=== PATIENT | female | born 1975 | race Hispanic/Latino ===

== ENCOUNTER 2017-02-12 13:41 | Emergency (ER) | payer SELFPAY ==
[~2017-02-12] VITALS: Ht 157.5 cm; Wt 89.5 kg
[~2017-02-12 13:41] MED LIST: LAMI250T PO
[2017-02-12 13:52] VITALS: BP 105/72; PULSE 86; RESP 16; O2SAT 98
[2017-02-12] MEDS ORDERED: 0.9% Sodium Chloride 1,000 ML IV ONE (14:32)
[2017-02-12] MEDS ORDERED: HYDROmorphone 0.5 mg/0.5 mL iSecure Syringe IVPUSH PRN (14:35)
[2017-02-12] MEDS ORDERED: Ondansetron 2 mg/mL 2 mL Inj IVPUSH ONE (14:35)
--- NOTE | 2017-02-12 14:41 | ED.REPORT ---
HPI-Abd Pain F 40 and Over Date of Service Feb 12, 2017 ED Provider: Zack Montano PA-C Mili is a 42-year-old woman who presents with a chief complaint of abdominal pain. She states that the pain began about 5 hours ago in her lower abdomen. She noted the pain to travel to her upper abdomen first to one side, then the other. At presentation her pain is again centered in her lower abdomen. She has not eaten since last night. Denies vomiting, diarrhea, bloody/tarry stools , urinary symptoms, vaginal bleeding/discharge, fever, chills, malaise. She reports a history of a hysterectomy. Denies appendectomy, cholecystectomy. Nursing Notes Stated Complaint: ABDOMINAL PAIN Chief Complaint: Female Abdominal Pain Nursing Notes Reviewed: Yes Allergies: Coded Allergies: No Known Allergies (Verified , 02/12/17) Scheduled Doxycycline Hyclate (Doxycycline Hyclate) 100 Mg Tablet 100 MG PO BID Scheduled PRN oxyCODONE-Acetaminophen 5-325 mg (oxyCODONE-Acetaminophen 5-325 mg) 1 Each Tablet 1-2 TAB PO Q4H PRN PRN Severe Pain General Time Seen by MD: 14:24 Chief Complaint Abdominal pain Sudden in Onset?: Yes Past Medical History Past Medical History Denies: Coronary artery disease, Diabetes mellitus, Hypertension, Stroke, Transient ischemic attack Review of Systems Negative unless stated otherwise in history of present illness Physical Exam Vital Signs Vital Signs (First) Date Time Temp Pulse Resp B/P Pulse Ox O2 Delivery O2 Flow Rate FiO2 02/12/17 13:52 36.1 86 16 105/72 98 Room Air Initial VS: Vital signs normal Interpretation & Diagnostics Lab Results Interpretation Result Diagram: 02/12/17 1440 02/12/17 1440 Test 02/12/17 14:40 02/12/17 20:20 02/12/17 21:22 White Blood Count 15.9th/mm3 (3.8-10.1) Red Blood Count 4.45mil/mm3 (3.90-5.20) Hemoglobin 11.9g/dL (12.0-15.6) Hematocrit 37.6% (35.0-46.0) Mean Corpuscular Volume 84.5fL (81-100) Mean Corpuscular Hemoglobin 26.7pg (27.0-35.0) Mean Corpuscular Hemoglobin Concent 31.6% (32.0-37.0) Red Cell Distribution Width 14.1% (12.3-15.4) Platelet Count 274bil/L (150-400) Neutrophils (%) (Auto) 80.0% (40-74) Lymphocytes (%) (Auto) 13.3% (14-46) Monocytes (%) (Auto) 5.9% (4-12) Eosinophils (%) (Auto) 0.5% (0-5) Basophils (%) (Auto) 0.1% (0-3) Urine Color Yellow (YELLOW) Urine Appearance Clear (CLEAR,HAZY) Urine pH 5.5 (5.0-8.0) Urine Specific Marvell 1.010 (1.003-1.035) Urine Protein Negativemg/dL (NEG,TRACE) Urine Glucose (UA) Negativemg/dL (NEGATIVE) Urine Ketones Negativemg/dL (NEGATIVE) Urine Occult Blood Negative (NEGATIVE) Urine Nitrite Negative (NEGATIVE) Urine Bilirubin Negative (NEGATIVE) Urine Urobilinogen Normalmg/dL (NORMAL) Urine Leukocyte Esterase Negative (NEGATIVE) Urine RBC 0-2/hpf (0-2) Urine WBC 0-5/hpf (0-5) Urine Epithelial Cells Many/hpf (NONE-MOD) Urine Crystals None seen (NONE SEEN) Urine Bacteria Moderate/hpf (NONE-FEW) Urine Hyaline Casts None/lpf (NONE) Urine Granular Casts None seen (NONE SEEN) Urine Waxy Casts None seen (NONE SEEN) Urine Red Blood Cell Casts None seen (NONE SEEN) Urine White Blood Cell Casts None seen (NONE SEEN) Urine Mucus None seen (None Seen) Urine Trichomonas None seen (NONE SEEN) Urine Yeast None (NONE SEEN) Urinalysis Comment None Urine Culture Reflexed Indicated Sodium Level 139mEq/L (134-144) Potassium Level 3.7mEq/L (3.5-5.2) Chloride Level 102mEq/L (97-108) Carbon Dioxide Level 22mmol/L (18-29) Blood Urea Nitrogen 9mg/dL (6-24) Creatinine 0.51mg/dL (0.57-1.00) Estimat Glomerular Filtration Rate 188mL/min (>59) Glucose Level 99mg/dL (60-99) Calcium Level 9.5mg/dL (8.5-10.1) Total Bilirubin 0.3mg/dL (0.0-1.2) Aspartate Amino Transf (AST/SGOT) 13U/L (0-50) Alanine Aminotransferase (ALT/SGPT) 15U/L (0-32) Alkaline Phosphatase 57U/L (25-150) Lactate Dehydrogenase 209U/L (100-190) Total Protein 8.0g/dL (6.4-8.4) Albumin 4.2g/dL (3.4-5.0) Lipase 24U/L (13-60) HCG Beta Subunit < 0.500mIU/mL Hold Veloz Top Tube Received (Received) Hold Urine Received (Received) CT Abd / Pelvis Interpretation PROCEDURE: CT ABDOMEN AND PELVIS WITH CONTRAST (PNL-7102) INDICATIONS: lower abdominal pain IMPRESSION: 1. Multiple bilateral low density and intermediate density ovarian cyst with associated lower quadrant fluid. Although these may represent endometriomas or hemorrhagic cysts, ovarian torsion cannot be excluded, and pelvic ultrasound to evaluate for adequate ovarian flow is recommended. Additionally, pelvic ultrasound will better characterize the cystic lesions. 2. Normal appendix. These findings were discussed with Zack Montano at 4:09 PM on 01/1517. 3. Probable right femoral neck bone island. However, no prior comparisons are available. Consider 3 month plain film followup to ensure stability of this finding. Interpretation / Wet Read by: Interpret - Radiologist US Focused non-OB Pelvis PROCEDURE: US PELVIC SONOGRAM WITH TRANSVAG AND DOPPLER INDICATIONS: bilateral ovarian cysts seen on CT IMPRESSION: 1. Complex right ovarian cyst. Differential considerations include hemorrhagic cyst and endometrioma. 6-12 week sonographic followup recommended. 2. Simple left ovarian cysts, one of which measures 6.3 cm in diameter. 6-12 week sonographic followup recommended. 3. No flow visualized within the left ovary. This is likely secondary to the technical limitations and body habitus of the patient. Of note, there appears to be enhancement of the left ovarian parenchyma on the associated CT from earlier today making ovarian torsion less likely. However, ovarian torsion cannot be excluded. Gynecologic followup recommended. These findings were discussed with Zack Montano PA-C at 5:43 PM on 02/12/17. Exam Performed by: Radiologist Re-Eval/Medical Decision Med Decision/Clinical Course 42-year-old female who presents with chief complaint of lower abdominal pain. First noticed several hours prior to presentation. She states she has had this pain 2 times before but it has resolved. Physical examination reveals tenderness to light touch globally but most acutely and lower abdominal quadrants. Vital signs are normal Patient treated with normal saline, ondansetron, hydromorphone. Labs are drawn and revealed moderate leukocytosis at 15.9. Urinalysis is unconvincing for urinary tract infection, cultures are sent. CT scan reveals bilateral ovarian cysts and free fluid. Radiologist advises pelvic ultrasound to further characterize lesions. Ultrasound confirmed perfusion of the right ovary but cannot confirm of the left. Consulted virtual recruiter Dr Hill who met with and examined patient. Per her instructions, the patient is discharged to home with prescription for oxycodone/ acetaminophen and doxycycline with instructions to follow up in clinic. Provided emergency return precautions. Patient verbalizes understanding of and consent to the plan Re-Evaluation/Progress : Time of Eval: 16:14 Re-Evaluation/Progress Note: Discussed CT findings with the patient. Also discussed performing an ultrasound to confirm perfusion of the ovaries. Patient agrees. States that her pain and nausea are well-controlled. Consultation #1: Call Returned at: 16:09 Note: Radiologist notes large bilateral ovarian cysts are detected. She states that they appear to be perfused but believes an ultrasound study would be appropriate to characterize them. Consultation #2: Referral / Consult Name: Chel Lema MD Call Returned at: 18:24 Note: I discussed the case with Dr. Lema. She feels that if the patient's pain can be managed with oral pain medication, it is reasonable to discharge her to home to follow-up in clinic. If pain cannot be managed with oral pain medications, she will need to be transferred to a facility capable of performing surgery over the weekend. She feels that this is likely to require surgery in any event. Discharge & Departure Primary Impression: Bilateral ovarian cysts Disposition: Home Discharge Condition All VS Reviewed: Yes Condition: Stable Patient Instructions: Ovarian Cyst (ED) Additional Instructions: Evaluation for abdominal pain in the emergency department. CT scan reveals bilateral ovarian cysts, which has been confirmed with ultrasound. You were seen in this department by our virtual recruiter, who recommends oral pain medication as well as doxycycline, which has been provided. Please contact her office on Tuesday to arrange follow-up. Pain is best managed with 600 mg ibuprofen every 6 hours, to that you can add 1- 2 of the hydrocodone/acetaminophen tablets every 6 hours for pain not controlled with ibuprofen. Return to emergency department for any new or worsening symptoms including worsening pain, fever, vaginal bleeding or discharge. The radiologist also noted a incidental finding of an abnormality in the bone of your right femur. They recommend following up on this in 3 months with x- rays. Please ask your primary care provider to review the report. Referrals: Sonali Humphrey MD (PCP) EDSupervising Provider for APC: David Cm MD Attending Statement Case was discussed and [employer] consult is appreciated. copies to: Sonali Humphrey MD, Seth PA-C Feb 12, 2017 14:41 David Cm MD Feb 12, 2017 23:39
[2017-02-12 14:48] LABS: BASOPHILS % (AUTO) 0.1 % (0-3); EOSINOPHILS % (AUTO) 0.5 % (0-5); MONOCYTES % (AUTO) 5.9 % (4-12); Mean Corpuscular Hemoglobin 26.7 pg (27.0-35.0); Mean Corpuscular Volume 84.5 fL (81-100); Platelet Count 274 bil/L (150-400)
[2017-02-12 15:05] LABS: APPEARANCE,URINE CLEAR (CLEAR,HAZY); COLOR,URINE YELLOW (YELLOW); OCCULT BLOOD,URINE NEGATIVE (NEGATIVE); PH,URINE 5.5 (5.0-8.0); UROBILINOGEN,URINE NORMAL (NORMAL)
--- NOTE | 2017-02-12 16:15 | DRSVH ---
PROCEDURE: CT ABDOMEN AND PELVIS WITH CONTRAST (PNL-7102) INDICATIONS: lower abdominal pain TECHNIQUE: After the administration of intravenous contrast, 5 mm thick sections acquired from the diaphragm to the symphysis. 5 mm coronal and sagittal reformats were acquired. For radiation dose reduction, the following was used: automated exposure control, adjustment of mA and/or kV according to patient siz e. COMPARISON: None. FINDINGS: Image quality: Excellent. ABDOMEN: Lung bases: Lung bases are clear. Heart size is normal. Solid organs: The liver is diffusely hypodense suggesting hepatic steatosis. Focal fat is present th e falciform ligament. A subcentimeter low-density lesion is present within the right hepatic lobe whi ch likely represents a simple hepatic cyst but is incompletely characterized. The spleen demonstrates normal size and enhancement. Gallbladder is unremarkable. Biliary system is non dilated. Pancreas enhances normally. There is a 13 mm diameter intermediate density right adrenal gland nodule. No lef t adrenal nodules. Kidneys demonstrate normal size and enhancement, without hydronephrosis. Peritoneum and bowel: Bowel loops demonstrate normal wall thickness and caliber. The appendix is thi n walled. Trace low-density free fluid is present in the bilateral lower quadrants. No free air. Nodes and vessels: No retroperitoneal or mesenteric adenopathy by size criteria. Aorta and inferior vena cava are normal in size. Miscellaneous: No ventral hernias. PELVIS: Genitourinary: Bladder wall thickness is normal. There are multiple bilateral low density and interm ediate density ovarian cysts. The largest cyst on the right measures 6.3 cm in diameter, and the larg est cyst on the left measures 5.3 cm in there is contrast enhancement of the ovarian parenchyma sugge sting flow to the ovaries. Miscellaneous: No inguinal hernias or adenopathy. Bones: No suspicious bony lesions. A high density sclerotic focus is present within the right femora l neck suggesting a bone island. No vertebral body compression fractures. IMPRESSION: 1. Multiple bilateral low density and intermediate density ovarian cyst with associated lower quadran t fluid. Although these may represent endometriomas or hemorrhagic cysts, ovarian torsion cannot be e xcluded, and pelvic ultrasound to evaluate for adequate ovarian flow is recommended. Additionally, pe lvic ultrasound will better characterize the cystic lesions. 2. Normal appendix. These findings were discussed with Zack Montano at 4:09 PM on 01/1517. 3. Probable right femoral neck bone island. However, no prior comparisons are available. Consider 3 m [facility] plain film followup to ensure stability of this finding. Dictated by: Norah Cespedes M.D. on 02/12/2017 at 16:01 Approved by: Norah Cespedes M.D. on 02/12/2017 at 16:13
[2017-02-12 16:38] VITALS: BP 114/58; PULSE 74; RESP 16; O2SAT 98
--- NOTE | 2017-02-12 17:51 | DRSVH ---
PROCEDURE: US PELVIC SONOGRAM WITH TRANSVAG AND DOPPLER INDICATIONS: bilateral ovarian cysts seen on CT TECHNIQUE: Real-time scanning was performed of the pelvic organs, with image documentation. Additional endovagi nal scanning was necessary due to incomplete visualization of the adnexal and endometrial structures by transabdominal scanning. COMPARISON: [facility], CT, CT ABD PELVIS W CON, 02/12/2017, 15:44. FINDINGS: Transabdominal scanning: Limited scanning through the kidneys shows no hydronephrosis. No pathologi c free abdominal or pelvic fluid. Endovaginal scanning: Uterus: Uterus is normal in size at 13.9 x 8.2 x 5.4 cm. The endometrium measures 15.3 mm in combin ed thickness. A 2 mm diameter endometrial polyp is noted. 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 Ovaries: The right ovary measures 6.0 x 4.9 x 5.5 cm. A complex 5.1 x 4.9 x 5.0 cm cyst is present wi thin the right ovary. There is normal arterial and venous flow within the right ovary. The left ovary measures 7.2 x 7.8 x 5.8 cm. 2 simple cysts are present within the left ovary, one whi ch measures 6.3 cm in diameter, and one which measures 3.1 cm in diameter. No flow is visualized with in the left ovary due to the technical limitations of the study and the patient's body habitus. There are bilateral paraovarian cysts. IMPRESSION: 1. Complex right ovarian cyst. Differential considerations include hemorrhagic cyst and endometrioma. 6-12 week sonographic followup recommended. 2. Simple left ovarian cysts, one of which measures 6.3 cm in diameter. 6-12 week sonographic followu p recommended. 3. No flow visualized within the left ovary. This is likely secondary to the technical limitations an d body habitus of the patient. Of note, there appears to be enhancement of the left ovarian parenchym a on the associated CT from earlier today making ovarian torsion less likely. However, ovarian torsio n cannot be excluded. Gynecologic followup recommended. These findings were discussed with Zack Montano PA-C at 5:43 PM on 02/12/17. Dictated by: Norah Cespedes M.D. on 02/12/2017 at 17:40 Approved by: Norah Cespedes M.D. on 02/12/2017 at 17:49
[2017-02-12] MEDS ORDERED: cefTRIAXone Inj 250 MG, Lidocaine PF 1% Inj 0.9 ML in Syringe 1 EACH IM ONE (19:40)
[2017-02-12] MEDS ORDERED: OXYC1TAB24 PO ×2 (19:40→20:03)
[2017-02-12] MEDS ORDERED: _oxyCODONE/APAP 5-325 mg Tablet PO PRN (19:45)
[2017-02-12] MEDS ORDERED: DOXY100T2 PO (20:02)
[2017-02-12] MEDS ORDERED: _Doxycycline 100 mg Tablet PO SCH (20:30)
[2017-02-12 21:24] VITALS: BP 112/73; PULSE 80; RESP 18; O2SAT 100
--- NOTE | 2017-02-13 06:16 | CONS ---
[address] [address] CONSULTATION REPORT PATIENT: LINDSAY BEAR : 1975 MR#: [id number] ADMIT: 02/12/2017 JOB ID: [id number] DATE OF SERVICE: February 12, 2017 CHIEF COMPLAINT: The patient presented to the ER with abdominal pain. HISTORY OF PRESENT ILLNESS: This is a 42 years old 3, para 3-0-0-3. Last menstrual period January 17, 2017. Irregular menstrual cycles. Last Pap smear approximately 3 years ago at [facility]. Denies history of abnormal Pap smears. Mammograms: Never. control: None. Patient presented today secondary to pain that started in the left lower quadrant and radiated to the right lower quadrant and extended to the upper quadrant. Pain started as 10/10 pain. Pain is gradually improved with IV pain medications. The patient received Dilaudid injection 0.5 mg, last dose at 1444 approximately over 5 hours ago. The patient denies nausea and vomiting. She does feel hungry and desires to eat. Last bowel movement was this morning and denies constipation. Denies any burning urination. The patient reports similar episodes of pain in the month of September and in the month of December. Pain usually resolved spontaneously or with Tylenol. PAST MEDICAL HISTORY: Asthma and obesity, BMI 36. PAST SURGICAL HISTORY: sections x3. Patient did not have tubal ligation. ALLERGIES: No known drug allergies. MEDICATIONS: None. FAMILY HISTORY: Mother: diabetic and hypertensive with dyslipidemia and history of DVT and history of TB. Father: at age 85. He was alcoholic. Brothers and sisters: with diabetes and hypertension and dyslipidemia. Denies family history of cancer. PHYSICAL EXAMINATION: Vital signs: Temperature 36.1, pulse 74, respiratory rate 16, blood pressure 114/58, pulse oximetry 98% on room air. Alert, oriented to time, place, and person. Head normocephalic, atraumatic. Chest equal air entry bilaterally. No added sounds. Cardiovascular S1 plus S2. Regular rate and rhythm. Abdomen is soft. No guarding. Tenderness in the right lower quadrant and in the left lower quadrant. No rebound tenderness. Pelvic exam: No cervical motion tenderness. Tenderness is mild in the right adnexal region. LABORATORIES: Urine test negative. White blood cells 15.9 elevated, hemoglobin 11.9, hematocrit 37.6, platelets 274, increased neutrophils 80%, lymphocyte 13% low. Urine color is yellow and clear, specific gravity 1.010, ketones negative, occult blood negative, nitrite negative, leukocyte esterase negative, white blood cells 0-5, red blood cells 0-2, epithelial cells many. Urine bacteria moderate. Reflex culture is indicated and pending. IMAGIN. CT scan was obtained and impression multiple bilateral lower density and intermediate density ovarian cyst with associated lower quadrant fluid, although these may represent endometriomas or hemorrhagic cysts, ovarian torsion cannot be excluded and pelvic ultrasound to evaluate for adequate ovarian flow eight is recommended. Additionally pelvic ultrasound will better characterize the cystic lesion. Normal appendix. Probable right femoral neck bone island. Consider 3 months plain film followup to ensure stability. 2. Pelvic ultrasound was performed. Impression complex right ovarian cyst measures 5.1 x 4.9 x 5 cm. Differential hemorrhagic cyst and endometrioma. Follow up scan is recommended in 6-12 weeks. Simple left ovarian cyst one of which measures 6.3 cm in diameter, 6-12 weeks sonographic follow up is recommended. No flow visualized within the left ovary. This is likely secondary to technical limitation and body habitus of the patient. Of note there appears to be enhancement of the left ovarian parenchyma on the associated CT from earlier today making ovarian torsion less likely. However ovarian torsion cannot be excluded. Gynecology followup recommended. ASSESSMENT: 1. This is a 42 years old 3, para 3-0-0-3 with last menstrual period of January 09, 2017 presented with acute abdominal pain in the left lower quadrant and the right lower quadrant with no signs of peritonitis with no GI symptoms. No fever. Pelvic ultrasound with multiple ovarian cyst, complex ovarian cyst in the right and simple ovarian cyst on the left. Cysts range in size between 5-6 cm. Pain by history appears to be cyclic and pain controlled initially with Dilaudid and now for over 5 hours with no IV pain medications and the patient reported improvement in the pain, and she feels that she desires to go home. Ovarian torsion is unlikely secondary to the improvement in the clinical symptoms. Ovarian cyst possibly related to endometriosis or other adnexal masses. Cancer cannot be excluded. Discussed the impression with the patient. Will obtain tumor markers and patient to follow up in the office in 2-3 days. Will obtain Pap smear and other mammogram at the outpatient visit and will schedule surgery as indicated. The patient was instructed to return to the emergency room if pain worsens or not controlled with oral pain medications or if she starts having fever or nausea and vomiting. Will treat empirically for possible pelvic inflammatory disease, 1 dose of Rocephin will be given in the ER and a course of doxycycline 100 mg q.12 hours for 14 days prescription was given. Prescription was given for oxycodone and acetaminophen 5/325 mg take 1-2 tablets q.6 hours as needed for pain. 2. Per CT Probable right femoral neck bone island. Consider 3 months plain film followup to ensure stability. Plan of care was discussed with the patient in details. All questions were answered. JESSIKA
== END 2017-02-12 21:24 | disposition home or self-care (01) ==
LOC: SED 13:41
DX: N83.201 Unspecified ovarian cyst, right side (principal); N83.202 Unspecified ovarian cyst, left side
CPT/HCPCS: 36415; 74177; 76830; 76856; 80053; 81000; 81025; 82105; 82378; 83615; 83690; 84702; 85025; 86301; 86304; 87086; 87088; 87491; 87591; 93975; 96361; 96374; 96375; 99285; J0696; J1170; J2405; J7030; Q9967

== ENCOUNTER 2017-02-28 07:32 | Emergency (ER) | payer SELFPAY ==
[~2017-02-28] VITALS: Ht 157.5 cm; Wt 84.1 kg
[~2017-02-28 07:32] MED LIST changes: +DOXY100T2 PO; -LAMI250T PO; +OXYC1TAB24 PO
[2017-02-28 07:35] VITALS: BP 113/80; PULSE 104; RESP 20; O2SAT 98
--- NOTE | 2017-02-28 07:56 | ED.REPORT ---
HPI-Abd Pain F 40 and Over Date of Service February 28, 2017 ED Provider: Marlin Gaines MD Patient is a 42 year old female with a history of ovarian cysts who presents to the ED complaining of abdominal pain onset yesterday. Associated symptoms include constipation. The patient reports that she hasn't had a bowel movement since yesterday and the pain has gotten progressively worse after trying to have a bowel movement. She has tried taking laxative and drinking prune juice but was still not able to have a bowel movement. Nursing Notes Stated Complaint: ABDOMINAL PAIN Chief Complaint: Female Abdominal Pain Nursing Notes Reviewed: Yes Allergies: Coded Allergies: azithromycin (Verified Allergy, Unknown, 02/28/17) Scheduled Doxycycline Hyclate (Doxycycline Hyclate) 100 Mg Tablet 100 MG PO BID Scheduled PRN oxyCODONE-Acetaminophen 5-325 mg (oxyCODONE-Acetaminophen 5-325 mg) 1 Each Tablet 1-2 TAB PO Q4H PRN PRN Severe Pain General Time Seen by MD: 07:55 Chief Complaint Abdominal pain Hx Obtained From: Patient, Spouse Arrived By: Walk-in Sudden in Onset?: Yes Onset Occurred: Yesterday Context of Onset: Other (worsened after trying to have a bowel movement) Progression since Onset: Gradually worsening Associated with: Reports: Constipation Recent Healthcare: No recent hospitalization, Recent doctor visit Similar Sx Previous: No Past Medical History Past Medical History Notes: Gynocologist at [facility]: Carlos Huerta Past Medical History bilateral ovarian cysts Social History Other Social History: Good social support, Ambulatory Status Independent Review of Systems Respiratory: Denies: Non-productive cough, Shortness of breath GI: Reports: Abdominal pain, Constipation Complete sys rev & neg: except as marked. Physical Exam Vital Signs Vital Signs (First) Date Time Temp Pulse Resp B/P Pulse Ox O2 Delivery O2 Flow Rate FiO2 02/28/17 07:35 36.1 104 20 113/80 98 Initial VS: Reviewed General/Constitutional: Awake, Alert Respiratory / Chest: Atraumatic, Breath sounds NL, Breath sounds = bilat, No respiratory distress Cardiovascular: Heart rate NL, Regular rhythm, Heart sounds NL Abdomen: No guarding, No rebound abdomen distended and distant, quiet bowel sounds Back: Atraumatic, Full range of motion Head / Eyes: Atraumatic, Normocephalic, PERRL, EOMI Skin: Atraumatic, Color NL, No rash, Warm, Dry Rectum / Perineum: Atraumatic, No gross blood not obstructed or obstipated small amount of stool on exam Neurologic: Oriented X3, Speech NL, No motor deficits, No sensory deficits Psychiatric: Affect NL, Mood NL Interpretation & Diagnostics Interpretation & Diagnostics: ABDOMEN CT FROM 02/12/17 IMPRESSION: 1. Multiple bilateral low density and intermediate density ovarian cyst with associated lower quadrant fluid. Although these may represent endometriomas or hemorrhagic cysts, ovarian torsion cannot be excluded, and pelvic ultrasound to evaluate for adequate ovarian flow is recommended. Additionally, pelvic ultrasound will better characterize the cystic lesions. 2. Normal appendix. These findings were discussed with Zack Montano at 4:09 PM on 01/1517. 3. Probable right femoral neck bone island. However, no prior comparisons are available. Consider 3 month plain film followup to ensure stability of this finding. Dictated by: Norah Cespedes M.D. on 02/12/2017 at 16:01 Approved by: Norah Cespedes M.D. on 02/12/2017 at 16:13 PELVIS ULTRASOUND FROM 02/12/17 IMPRESSION: 1. Complex right ovarian cyst. Differential considerations include hemorrhagic cyst and endometrioma. 6-12 week sonographic followup recommended. 2. Simple left ovarian cysts, one of which measures 6.3 cm in diameter. 6-12 week sonographic followup recommended. 3. No flow visualized within the left ovary. This is likely secondary to the technical limitations and body habitus of the patient. Of note, there appears to be enhancement of the left ovarian parenchyma on the associated CT from earlier today making ovarian torsion less likely. However, ovarian torsion cannot be excluded. Gynecologic followup recommended. These findings were discussed with Zack Montano PA-C at 5:43 PM on 02/12/17. Dictated by: Norah Cespedes M.D. on 02/12/2017 at 17:40 Approved by: Norah Cespedes M.D. on 02/12/2017 at 17:49 X-Ray Abdominal Interpretation IMPRESSION: Large amount of stool within the colon is suggestive of constipation. Please correlate clinically for possible fecal impaction. Dictated by: Veto Junior M.D. on 02/28/2017 at 13:26 Approved by: Veto Junior M.D. on 02/28/2017 at 13:32 Interpretation / Wet Read by: Interpret - Radiologist Re-Eval/Medical Decision Med Decision/Clinical Course 42-year-old woman presents with abdominal pain complaining of constipation. She has recently started her menses and has 2 known large ovarian cysts. Pelvic ultrasound and pelvic CT done on February 12. Rectal exam does reveal some soft stool but it does not appear to be impacted. Initially fleets/K-Y jelly enema was attempted with absolutely no results. With significant pain was concerned that there may be more involved with her pain including possibility of ovarian torsion given the large cysts. Suggested that she try a bottle of magnesium citrate here in the emergency department to at least prove that she could begin to have a bowel movement before discharged home and make sure that discharge was safe. She did this and still had no results at all. On reevaluation she continues to have increasing pain and increasing abdominal distention. She has now been in the department almost 5 hours. Abdominal x-rays ordered shows significant transverse colon distention with significant amounts of stool in the ascending and descending parts of the colon. Her CA-125 level is elevated and apparently her [facility] physician has sent samples to [facility] and the patient is aware of the concern for ovarian cancer. Given the increasing pain lack of response to enema and magnesium citrate increasing distention elevated CA-125 and concern for some type of obstruction although ahead and repeat a CT scan of the abdomen with contrast. Have shared my concerns with the patient. He will also apologize for the very extended emergency room stay. At this point I am concerned that she may have obstruction or complications from a yet to be diagnosed ovarian cancer. If this is simply constipation then she is going to need more aggressive treatment then enemas and magnesium citrate for relief. Care signed out to Dr. Garcia at 3:00. All of my concerns and signout are shared with the patient with the use of an site interpreter. All questions are answered. We will begin by mouth contrast will use IV contrast fluids and nausea medicine and pain medication will be administered via IV. Disposition to be determined based on CT scan Re-Evaluation/Progress #1: Time of Eval: 10:17 Re-Evaluation/Progress Note: [place] enema didn't have much effect, she is still runner. Going to try Mag-citrate. Relucant to let her go home without having some stool movement. Re-Evaluation/Progress #2: Time of Eval: 11:37 Patient Status: Condition unchanged (still unable to have a bowel movement) , Pain improved Re-Evaluation/Progress #3: Time of Eval: 13:16 Patient Status: Condition unchanged Re-Evaluation/Progress #4: Time of Eval: 14:42 Patient Status: Condition unchanged Re-Evaluation/Progress Note: Discussed X-ray results and concerns with the patient. Counseled Regarding: Diagnosis, Lab results, Need for follow-up, When/why to return to ED Discharge & Departure Primary Impression: Abdominal pain Discharge Condition All VS Reviewed: Yes Condition: Stable Referrals: NOPCP (PCP) Wilfredo Attestation Portions of this note were transcribed by Ritu Donovan. I, Dr. Gaines personally performed the history, physical exam and medical decision-making; I reviewed and confirmed the accuracy of the information in the transcribed note. Signed by: Wilfredo Kohli, 02/28/17 and 1444. Marlin Gaines MD February 28, 2017 07:56 Haydee Dnoovan February 28, 2017 08:41
[2017-02-28] MEDS ORDERED: oxyCODONE-Acetamin 5-325 mg Tablet PO ONE (10:20)
--- NOTE | 2017-02-28 14:34 | DRSVH ---
PROCEDURE: X-RAY ACUTE ABDOMINAL SERIES ([id number]) INDICATIONS: abdominal pain TECHNIQUE: One view chest and two views of the abdomen were acquired. COMPARISON: [facility], CT, CT ABD PELVIS W CON, 02/12/2017, 15:44. FINDINGS: Surgical changes and devices: None. Chest: Lungs are clear. Heart size is normal. No pleural effusions. No pneumoperitoneum. Abdomen: There is a very large amount of stool identified within the colon and within the rectum. No distended air-filled small bowel loops are identified. Air-fluid levels are seen within the colon. No suspicious calcifications. Visualized solid organ contours appear normal. Bones: No suspicious bony lesions. IMPRESSION: Large amount of stool within the colon is suggestive of constipation. Please correlate c linically for possible fecal impaction. Dictated by: Veto Junior M.D. on 02/28/2017 at 13:26 Approved by: Veto Junior M.D. on 02/28/2017 at 13:32
[2017-02-28] MEDS ORDERED: 0.9% Sodium Chloride 1,000 ML IV ONE (14:58)
[2017-02-28] MEDS ORDERED: HYDROmorphone 1 mg/mL Inj IVPUSH ONE (15:00)
[2017-02-28] MEDS ORDERED: Iohexol 300 mg/mL 30 mL Inj PO ONE (15:00)
[2017-02-28] MEDS ORDERED: Ondansetron 2 mg/mL 2 mL Inj IVPUSH ONE (15:00)
[2017-02-28 15:05] LABS: BASOPHILS % (AUTO) 0.2 % (0-3); EOSINOPHILS % (AUTO) 0.1 % (0-5); MONOCYTES % (AUTO) 5.6 % (4-12); Mean Corpuscular Hemoglobin 27.1 pg (27.0-35.0); Mean Corpuscular Volume 83.1 fL (81-100); NEUTROPHILS % (AUTO) 84.2 % (40-74); Platelet Count 315 bil/L (150-400)
[2017-02-28] MEDS: HYDROmorphone 0.5 mg/0.5 mL iSecure Syringe IVPUSH PRN ×3 (15:11→16:20)
[2017-02-28 15:25] VITALS: BP 126/74; PULSE 99; RESP 18; O2SAT 96
[2017-02-28 15:31] LABS: Magnesium 2.5 mg/dL (1.6-2.6)
--- NOTE | 2017-02-28 17:55 | DRSVH ---
PROCEDURE: CT ABDOMEN AND PELVIS WITH CONTRAST ([id number]) INDICATIONS: severe and increasing abdominal pain TECHNIQUE: After the administration of oral and intravenous contrast, 5 mm thick sections acquired from the diap hragms to the symphysis. 5 mm thick coronal and sagittal reformats were performed. For radiation do se reduction, the following was used: automated exposure control, adjustment of mA and/or kV accordi ng to patient size. COMPARISON: [facility], CT, CT ABD PELVIS W CON, 02/12/2017, 15:44. FINDINGS: Image quality: Excellent. ABDOMEN: Lung bases: Lung bases are clear. Heart size is normal. Solid organs: Liver and spleen are normal in size and enhancement. Gallbladder is within normal berg its. Biliary system is non-dilated. Pancreas enhances normally. No change in 20 mm diameter nodule within the superomedial aspect of the right adrenal gland. Post contrast Hounsfield units are 51. No left adrenal nodules. Kidneys are normal in size and enhancement, without hydronephrosis. Peritoneum and bowel: Stomach and small bowel are within normal limits. Appendix is normal. There is a new, large amount of stool within the rectum, as well as new mild diffuse colonic dilatation. Larg e amount of right colonic stool. No free fluid or air. Normal appendix. Nodes and vessels: No retroperitoneal or mesenteric adenopathy. Aorta and inferior vena cava are no rmal in caliber. Miscellaneous: No change in small fat containing umbilical hernia. PELVIS: Genitourinary: Bladder wall thickness is normal. The bilateral adnexal intermediate density foci ar e slightly decreased, measuring 93 mm on the left, and 62 mm on the right (previously measuring 101 m m on the left, and 66 millimeters on the right). Surrounding fat stranding and fluid within the pelvi s have resolved. Miscellaneous: No inguinal hernias or adenopathy. Bones: No suspicious bony lesions. No vertebral body compression fractures. IMPRESSION: 1. Fecal impaction within the rectum, associated with mild diffuse colonic dilatation, and large amou nt of right colonic stool. 2. Resolving bilateral adnexal high-density cysts and resolved surrounding inflammation. Continued so nographic followup is recommended to ensure resolution, and to exclude underlying malignancy. 3. Normal appendix. 4. No change in indeterminate right adrenal nodule, which could be further assessed with MRI, if clin ically indicated. Dictated by: Hanna Ferguson M.D. on 02/28/2017 at 17:49 Approved by: Hanna Ferguson M.D. on 02/28/2017 at 17:54
[2017-02-28 19:47] VITALS: PULSE 84; RESP 16
== END 2017-02-28 19:48 | disposition home or self-care (01) ==
LOC: SED 07:32
DX: R10.9 Unspecified abdominal pain (principal); K59.00 Constipation, unspecified; N83.291 Other ovarian cyst, right side; N83.292 Other ovarian cyst, left side; Z87.42 Personal history of other diseases of the female genital tract; Z88.1 Allergy status to other antibiotic agents
CPT/HCPCS: 36415; 74022; 74177; 80053; 83735; 85025; 96361; 96374; 96375; 96376; 99285; J1170; J2270; J2405; J7030; Q9967